=== PATIENT | female | born 1990 | race African-American/Black ===

== ENCOUNTER → 2016-07-19 | Emergency (ER) | payer OTHER ==
[~2016-07-19] MED LIST: LEVOFLOXACIN 500 MG TABLET (FP) ONE; LEVOFLOXACIN 500 MG TABLET (FP) PO ONE
[2016-07-19 21:59] VITALS: BMI 44.9
--- NOTE | 2016-07-19 22:53 | PDOC ---
History of Present Illness <Thea Bob - Last Filed: 07/19/16 22:53> - General History Source: Patient Exam Limitations: No Limitations - History of Present Illness Initial Comments: 07/19/16 22:55 The patient is a 26 year old female with significant past medical history of diabetes who presents to the ED for 1 week of progressively worsening frequency and urgency. Patient reports her frequency and urgency worsen 3 days ago. Today she developed left groin pain and low back pain. Denies dysuria and hematuria. States her last UTI was around the age of 13. Her LMP was few days ago. The patient denies fever, chills, cough, SOB, chest pain, and palpitations. The patient denies nausea, vomiting, and diarrhea. Allergies: NKDA Social History: No alcohol, tobacco, or drug use reported. Past Surgical History: C-sections x3, ovarian cyst removal, tubal ligation PCP: None reported <Fidelia Webber - Last Filed: 07/19/16 22:55> <Reshma De Jesus - Last Filed: 07/20/16 01:21> - General Chief Complaint: Urinary Problem Stated Complaint: PELVIC PAIN Time Seen by Provider: 07/19/16 22:19 Past History - Past Medical History Diabetes: Yes - Psycho/Social/Smoking Cessation Hx Anxiety: No Suicidal Ideation: No Smoking History: Never smoked Have you smoked in the past 12 months: No Information on smoking cessation initiated: No Hx Alcohol Use: No Drug/Substance Use Hx: No Substance Use Type: None <Thea Bob - Last Filed: 07/19/16 22:53> <Fidelia Webber - Last Filed: 07/19/16 22:55> <Reshma De Jesus - Last Filed: 07/20/16 01:21> - Past Medical History Allergies/Adverse Reactions: Allergies Allergy/AdvReac Type Severity Reaction Status Date / Time No Known Allergies Allergy Verified 04/08/16 22:39 Home Medications: Ambulatory Orders Metformin HCl [Glucophage -] 850 mg PO BID 04/08/16 Levofloxacin [Levaquin -] 500 mg PO DAILY #4 tablet 07/20/16 Review of Systems - Review of Systems Able to Perform ROS?: Yes Comments:: 07/19/16 22:55 GENERAL/CONSTITUTIONAL: No fever or chills. No weakness. HEAD, EYES, EARS, NOSE AND THROAT: No change in vision. No ear pain or discharge. No sore throat. CARDIOVASCULAR: No chest pain or shortness of breath. RESPIRATORY: No cough, wheezing, or hemoptysis. GASTROINTESTINAL: +left groin pain No nausea, vomiting, diarrhea or constipation. GENITOURINARY: +frequency, urgency No dysuria MUSCULOSKELETAL: +low back pain No joint or muscle swelling or pain. No neck pain. SKIN: No rash NEUROLOGIC: No headache, vertigo, loss of consciousness, or change in strength/ sensation. ENDOCRINE: No increased thirst. No abnormal weight change. HEMATOLOGIC/LYMPHATIC: No anemia, easy bleeding, or history of blood clots. ALLERGIC/IMMUNOLOGIC: No hives or skin allergy. <Fidelia Webber - Last Filed: 07/19/16 22:55> *Physical Exam - Vital Signs Last Vital Signs Temp Pulse Resp BP Pulse Ox 97.9 F 70 18 143/80 99 07/19/16 21:54 07/19/16 21:54 07/19/16 21:54 07/19/16 21:54 07/19/16 21:54 <Thea Bob - Last Filed: 07/19/16 22:53> - Vital Signs Last Vital Signs Temp Pulse Resp BP Pulse Ox 97.9 F 70 18 143/80 99 07/19/16 21:54 07/19/16 21:54 07/19/16 21:54 07/19/16 21:54 07/19/16 21:54 - Physical Exam Comments: 07/19/16 22:55 GENERAL: Awake, alert, and fully oriented, in no acute distress HEAD: No signs of trauma EYES: PERRLA, EOMI, sclera anicteric, conjunctiva clear ENT: Auricles normal inspection, hearing grossly normal, nares patent, oropharynx clear without exudates. Moist mucosa NECK: Normal ROM, supple, no lymphadenopathy, JVD, or masses LUNGS: Breath sounds equal, clear to auscultation bilaterally. No wheezes, and no crackles HEART: Regular rate and rhythm, normal S1 and S2, no murmurs, rubs or gallops ABDOMEN: Soft, mild left lower quadrant tenderness and suprapubic tenderness, normoactive bowel sounds. No guarding, no rebound. No masses EXTREMITIES: Normal range of motion, no edema. No clubbing or cyanosis. No cords, erythema, or tenderness NEUROLOGICAL: Cranial nerves II through XII grossly intact. Normal speech, normal gait SKIN: Warm, Dry, normal turgor, no rashes or lesions noted. <Fidelia Webber - Last Filed: 07/19/16 22:55> - Vital Signs Last Vital Signs Temp Pulse Resp BP Pulse Ox 97.9 F 70 18 143/80 99 07/19/16 21:54 07/19/16 21:54 07/19/16 21:54 07/19/16 21:54 07/19/16 21:54 <Reshma De Jesus - Last Filed: 07/20/16 01:21> ED Treatment Course - ADDITIONAL ORDERS Additional order review: Laboratory Results 07/19/16 22:39 Urine Color Straw Urine Appearance Clear Urine pH 5.0 Urine Protein Negative Urine Glucose (UA) 3+ H Urine Ketones Negative Urine Blood 1+ H Urine Nitrite Negative Urine Bilirubin Negative Urine Urobilinogen Negative Ur Leukocyte Esterase Trace H Urine RBC 1 Urine WBC 20 Ur Epithelial Cells Rare Urine Mucus Rare Urine HCG, Qual Negative <Reshma De Jesus - Last Filed: 07/20/16 01:21> Medical Decision Making - Medical Decision Making 07/20/16 01:19 Pt has minimal suprapubic tenderness. I will treat UTI with levaquin. She has 20 WBC and leuk + urine. She has an elevated blood sugar, but pt will take her levemir at home. Stable for discharge. Follow with PMD. <Reshma De Jesus - Last Filed: 07/20/16 01:21> *DC/Admit/Observation/Transfer <Thea Bob - Last Filed: 07/19/16 22:53> - Attestations Scribe Attestion: 07/19/16 22:55 Documentation prepared by Fidelia Webber, acting as medical reception for Thea Bob MD, /DO. <Fidelia Webber - Last Filed: 07/19/16 22:55> - Discharge Dispostion Admit: No <Reshma De Jesus - Last Filed: 07/20/16 01:21> Diagnosis at time of Disposition: UTI (urinary tract infection) - Discharge Dispostion Disposition: HOME Condition at time of disposition: Stable - Prescriptions Prescriptions: Levofloxacin [Levaquin -] 500 mg PO DAILY #4 tablet - Patient Instructions Printed Discharge Instructions: Urinary Tract Infection
[2016-07-19 22:56] LABS: URINE APPEARANCE CLEAR; URINE BILIRUBIN NEGATIVE (NEGATIVE); URINE COLOR STRAW; URINE GLUCOSE (UA) 3+ (NEGATIVE); URINE KETONE NEGATIVE (NEGATIVE); URINE NITRITE NEGATIVE (NEGATIVE); URINE PROTEIN NEGATIVE (NEGATIVE); URINE UROBILINOGEN NEGATIVE E.U./dl (0.2-1.0)
[2016-07-19 22:57] LABS: URINE BLOOD 1+ (NEGATIVE); URINE LEUK ESTERASE TRACE (NEGATIVE)
[2016-07-19 23:00] LABS: URINE MUCUS RARE; URINE RBC 1 /hpf (0-3); URINE WBC 20 /hpf (3-5)
[2016-07-20 00:25] VITALS: BP 131/77; PULSE 65; TEMP 98.3
--- NOTE | 2016-07-23 08:30 | PDOC ---
Patient Follow-up (Call Back) - Post ED Follow - Up Condition at time of discharge: Stable Disposition at time of original discharge: HOME - Disposition Additional Instructions/Notes: + urine culture, on levaquin, susceptible.
== END | disposition home or self-care (01) ==
LOC: JER 21:30
DX: N39.0 Urinary tract infection, site not specified (principal); E11.65 Type 2 diabetes mellitus with hyperglycemia; Z79.84 Long term (current) use of oral hypoglycemic drugs
CPT/HCPCS: 81003; 81015; 84703; 87086; 87186; 99282-25

== ENCOUNTER 2016-10-03 13:34 | Emergency (ER) | payer OTHER ==
[2016-10-03 13:42] VITALS: BP 146/89; PULSE 76; TEMP 98.4; BMI 35.5
--- NOTE | 2016-10-03 15:12 | PDOC ---
Attending Attestation - Resident Resident Name: Keira Madrigal - ED Attending Attestation I have performed the following: I have examined & evaluated the patient, The case was reviewed & discussed with the resident, I agree w/resident's findings & plan, Exceptions are as noted - HPI HPI: 10/03/16 15:10 26yo F hx NIDDM, bacterial vaginosis, s/p treatment last wk (finished saturday) , b/l tubal ligation p/w RLQ pain x2 days. Pain radiates to R flank and down R thigh. Pain is worse with heavy lifting. Feels like a previous ovarian cyst. LMP 09/16/16. Also reports urinary frequency and urgency. +nausea 10/03/16 15:17 - Physicial Exam PE: 10/03/16 15:18 GENERAL: Awake, alert, and fully oriented, in no acute distress HEAD: No signs of trauma EYES: PERRLA, EOMI, sclera anicteric, conjunctiva clear ENT: Auricles normal inspection, hearing grossly normal, nares patent, oropharynx clear without exudates. Moist mucosa NECK: Normal ROM, supple, no lymphadenopathy, JVD, or masses LUNGS: Breath sounds equal, clear to auscultation bilaterally. No wheezes, and no crackles HEART: Regular rate and rhythm, normal S1 and S2, no murmurs, rubs or gallops ABDOMEN: Soft, normoactive bowel sounds. No guarding, no rebound. No masses. R sided abdominal pain RLQ>RUQ. EXTREMITIES: Normal range of motion, no edema. No clubbing or cyanosis. No cords, erythema, or tenderness NEUROLOGICAL: Normal speech, cranial nerves intact, negative pronator drift, 5/ 5 strength in all 4 extremities, normal sensation to light touch in all 4 extremities, normal cerebellar exam, normal gait, normal reflexes and tone SKIN: Warm, Dry, normal turgor, no rashes or lesions noted. - Medical Decision Making 10/03/16 15:19 26-year-old female presents with right lower quadrant pain and tenderness. Differential is wide and includes ectopic although unlikely given history of tubal ligation versus ruptured ovarian cyst versus PID versus appendicitis versus UTI. -labs -UA -TVUS -consider CTAP -pain control -reassess 10/04/16 20:05
--- NOTE | 2016-10-03 15:18 | PDOC ---
History of Present Illness - General Chief Complaint: Pain Stated Complaint: LOWER PELVIC PAIN Time Seen by Provider: 10/03/16 14:42 History Source: Patient Exam Limitations: No Limitations - History of Present Illness Initial Comments: This is a 26 female with h/o recent bacterial vaginosis (finished metronidazole course on 4 days ago), recent vaginal yeast infection (took antifungal pill on two days ago), NIDDM, ovarian cystectomy, bilateral tubal ligation, and C- section x3 who p/w RLQ and right flank pain for the past two days. It has fluctuated up to 8/10 and feels like cramping pressure, with occasional sharper shooting pain in the RLQ that radiates to her groin and down the front of her right thigh. It improves with resting on her left side, and worsens with heavy lifting. 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 She took Tylenol yesterday for the pain. She notes similar prior episodes of pain in the same area just before she had a right ovarian cyst removed. She additionally notes white vaginal discharge, recent urinary frequency, pink coloration yesterday, and urgency resulting in leaking urine. She has had nausea and urge to defecate today as well, but denies any fever, chills, vomiting, diarrhea, constipation, painful urination, new numbness, new tingling, headache, new dizziness, black or bloody stool, or other symptoms. Past History - Past Medical History Allergies/Adverse Reactions: Allergies Allergy/AdvReac Type Severity Reaction Status Date / Time No Known Allergies Allergy Verified 10/03/16 13:39 Home Medications: Ambulatory Orders Metformin HCl [Glucophage -] 500 mg PO DAILY 04/08/16 Diabetes: Yes Other medical history: recent bacterial vaginosis - Surgical History Appendectomy: No Cholecystectomy: No Other Surgical History: right ovarian cyst removal, bilateral tubal ligation - Reproductive History LMP comment: LMP 09/16/16 - Psycho/Social/Smoking Cessation Hx Anxiety: No Suicidal Ideation: No Smoking History: Never smoked Have you smoked in the past 12 months: No Information on smoking cessation initiated: No Hx Alcohol Use: No Drug/Substance Use Hx: No Substance Use Type: None Review of Systems - Review of Systems Able to Perform ROS?: Yes Constitutional: No: Chills, Fever, Unexplained wgt Loss HEENTM: No: Nose Congestion, Throat Pain Respiratory: No: Cough, Shortness of Breath Cardiac (ROS): No: Chest Pain, Lightheadedness, Palpitations ABD/GI: Yes: Nausea, Other (abdominal pain). No: Constipated, Diarrhea, Vomiting : Yes: Discharge (white), Frequency, Flank Pain (right), Hematuria, Pain ( vaginal), Urgency. No: Burning, Dysuria Musculoskeletal: No: Muscle Weakness, Neck Pain Integumentary: No: Bruising, Rash Neurological: No: Headache, Numbness, Tingling, Weakness, Dizziness Endocrine: No: Unexplained Weight Gain, Unexplained Weight Loss *Physical Exam - Vital Signs Last Vital Signs Temp Pulse Resp BP Pulse Ox 98.4 F 76 18 146/89 100 10/03/16 13:40 10/03/16 13:40 10/03/16 13:40 10/03/16 13:40 10/03/16 13:40 - Physical Exam General Appearance: Yes: Nourished, Appropriately Dressed, Obese, Other ( pleasant young woman with two young children in the room with her, nontoxic appearing, conversive and calm). No: Apparent Distress HEENT: positive: EOMI, Normal Voice, Hearing Grossly Normal. negative: Scleral Icterus (R), Scleral Icterus (L), Nasal Congestion Neck: positive: Trachea midline, Supple. negative: Tender, Rigid Respiratory/Chest: positive: Lungs Clear, Normal Breath Sounds. negative: Respiratory Distress, Crackles, Rhonchi, Stridor, Wheezing Cardiovascular: positive: Regular Rhythm, Regular Rate. negative: Edema, Murmur Female Pelvic Exam: positive: cervical os closed, CMT, discharge (copious thick white discharge with curdled appearance and slight pink tinge), adnexal tenderness (right), other (external exam with raw and mildly irritated skin to bilateral labia majora) Gastrointestinal/Abdominal: positive: Normal Bowel Sounds, Tender (mild diffuse tenderness with moderate tenderness to RLQ with tenderness at McBurney's point and positive Thompson's sign, no rebound tenderness), Soft. negative: Organomegaly, Pulsatile Mass, Guarding Musculoskeletal: positive: Normal Inspection, CVA Tenderness (R). negative: CVA Tenderness (L), Decreased Range of Motion, Vertebral Tenderness Extremity: positive: Normal Capillary Refill, Normal Inspection, Normal Range of Motion. negative: Tender, Cyanosis Integumentary: positive: Normal Color, Dry, Warm. negative: Erythema, Rash, Bruising Neurologic: positive: furnace filler II-XII NML intact, Fully Oriented, Alert, Normal Mood/ Affect, Normal Response, Motor Strength 5/5, Finger to Nose (normal) ED Treatment Course - LABORATORY CBC & Chemistry Diagram: 10/03/16 15:43 10/03/16 15:43 Medical Decision Making - Medical Decision Making 26 yo female with NIDDM, recent BV, recent vaginal yeast infection p/w RLQ and pelvic pain. Exam notable for diffuse ttp worse in the RLQ, right CVA tenderness. Pelvic exam with copious discharge, CMT, and right adnexal tenderness. DDX includes ovarian cyst, vaginitis, PID, UTI/pyelo, appendicitis, cholecystitis, pancreatitis, sciatica, or muscle strain/sprain. Ordered are CBCD, CMP, lipase, UA +cx, US transvaginal, GC/Chlam/Trich and RPR, CT Ab/Pelv WWO contrast. Laboratory Tests 10/03/16 10/03/16 10/03/16 15:43 15:43 15:43 WBC 8.1 RBC 4.73 Hgb 13.0 Hct 39.8 MCV 84.0 MCH 27.5 MCHC 32.8 RDW 13.5 Plt Count 142 MPV 13.0 H Neutrophils % 55.7 Lymphocytes % 32.9 D Monocytes % 8.8 Eosinophils % 1.9 Basophils % 0.7 Differential Comment Slide scanned Platelet Estimate Adequate Sodium 136 Potassium 4.2 Chloride 99 Carbon Dioxide 26 Anion Gap 11 BUN 9 D Creatinine 0.8 Creat Clearance w eGFR > 60 Random Glucose 348 H* Calcium 9.1 Total Bilirubin 0.2 D AST 13 L ALT 34 Alkaline Phosphatase 67 Total Protein 6.7 Albumin 3.4 Lipase 153 Serum , Qual Urine Color Straw Urine Appearance Clear Urine pH 5.0 Ur Specific [place] <= 1.005 Urine Protein Negative Urine Glucose (UA) 3+ H Urine Ketones Trace H Urine Blood Negative Urine Nitrite Negative Urine Bilirubin Negative Urine Urobilinogen Negative Ur Leukocyte Esterase Negative 10/03/16 17:46 WBC RBC Hgb Hct MCV MCH MCHC RDW Plt Count MPV Neutrophils % Lymphocytes % Monocytes % Eosinophils % Basophils % Differential Comment Platelet Estimate Sodium Potassium Chloride Carbon Dioxide Anion Gap BUN Creatinine Creat Clearance w eGFR Random Glucose Calcium Total Bilirubin AST ALT Alkaline Phosphatase Total Protein Albumin Lipase Serum , Qual Negative Urine Color Urine Appearance Urine pH Ur Specific [place] Urine Protein Urine Glucose (UA) Urine Ketones Urine Blood Urine Nitrite Urine Bilirubin Urine Urobilinogen Ur Leukocyte Esterase UA without e/o UTI. Serum negative. CBCD unremarkable, CMP shows hyperglycemia but the patient is asymptomatic. Lipase is negative. Transvaginal US reported as normal, ovaries not visualized. Pt awaiting CT abdomen/pelvis WWO contrast (IV and PO). Signed out to oncoming resident, Dr. Ned Evans. *DC/Admit/Observation/Transfer Diagnosis at time of Disposition: Pain in pelvis - Attestations Physician Attestion: I, Dr. Keira Madrigal, attest that this document has been prepared under my direction and personally reviewed by me in its entirety. I further attest, that it accurately reflects all work, treatment, procedures and medical decision -making performed by me.
[2016-10-03 16:02] LABS: BASOPHIL 0.7 % (0-2.0); EOSINOPHIL 1.9 % (0-4.5); MCH 27.5 pg (25.7-33.7); MCHC 32.8 g/dl (32.0-36.0); NEUTROPHILS 55.7 % (42.8-82.8); PLATELET COUNT 142 K/MM3 (134-434); RDW 13.5 % (11.6-15.6); WHITE BLOOD COUNT 8.1 K/mm3 (4.0-10.0)
[2016-10-03 16:08] LABS: URINE APPEARANCE CLEAR; URINE BILIRUBIN NEGATIVE (NEGATIVE); URINE BLOOD NEGATIVE (NEGATIVE); URINE COLOR STRAW; URINE GLUCOSE (UA) 3+ (NEGATIVE); URINE KETONE TRACE (NEGATIVE); URINE LEUK ESTERASE NEGATIVE (NEGATIVE); URINE NITRITE NEGATIVE (NEGATIVE); URINE PROTEIN NEGATIVE (NEGATIVE); URINE UROBILINOGEN NEGATIVE mg/dL (0.2-1.0)
[2016-10-03 16:34] LABS: ALBUMIN 3.4 g/dl (3.4-5.0); ALK PHOS 67 U/L (45-117); ANION GAP 11 (8-16); BILIRUBIN,TOTAL 0.2 mg/dL (0.2-1.0); CALCIUM 9.1 mg/dL (8.5-10.1); CO2 26 mmol/L (21-32); CREATININE 0.8 mg/dL (0.55-1.02); SGOT/AST 13 U/L (15-37); SGPT/ALT 34 U/L (12-78); TOT PROT 6.7 g/dl (6.4-8.2)
[2016-10-03 16:42] LABS: GLUCOSE,RANDOM 348 mg/dL (74-106)
[2016-10-03 19:14] LABS: PLATELET ESTIMATE ADEQUATE (NORMAL)
[2016-10-03] MEDS ORDERED: cefTRIAXone SODIUM 1 GM VIAL ONE (20:26)
[2016-10-03] MEDS ORDERED: LIDOCAINE HCL/PF 1% SDV 5ML VIAL ONE (20:27)
[2016-10-03] MEDS ORDERED: DOXYCYCLINE HYCLATE 100 MG CAPSULE PO ONE ×2 (22:00→22:04)
[2016-10-03] MEDS ORDERED: INSULIN REGULAR HUMAN 100 UNITS/ML *VIAL SQ ONE (22:11)
--- NOTE | 2016-10-03 22:12 | PDOC ---
*Physical Exam - Vital Signs Last Vital Signs Temp Pulse Resp BP Pulse Ox 98.4 F 76 18 146/89 100 10/03/16 13:40 10/03/16 13:40 10/03/16 13:40 10/03/16 13:40 10/03/16 13:40 - Physical Exam Comments: 10/03/16 22:12 pt endorsed to me by Dr. Solitario/Ira. Patient is a 26-year-old female with history of diabetes (noncompliant with her insolent regimen) who presents to the ER with atraumatic lower abdominal pain. In the ER, patient is awake and alert, nontoxic-appearing, afebrile. CBC is within normal limit. CMP reveals hyperglycemia of 359 with no evidence of increased anion gap. Significant only decreased sodium bicarbonate. Transvaginal ultrasound revealed no adnexal masses , ovaries were not adequately visualized. CT of abdomen and pelvis with by mouth and IV contrast revealed no evidence of acute appendicitis or any other intra-abdominal pathology. Pelvic exam performed by Dr. Koroma reveal large amount of purulent vaginal discharge as well as CMT and right adnexal tenderness. PID suspected. We will treat with ceftriaxone and doxycycline. Will obtain RPR to be followed up by [facility]. Will discharge. ED Treatment Course - LABORATORY CBC & Chemistry Diagram: 10/03/16 15:43 10/03/16 15:43 - ADDITIONAL ORDERS Additional order review: Laboratory Results 10/03/16 10/03/16 10/03/16 17:46 15:43 15:43 Sodium 136 Potassium 4.2 Chloride 99 Carbon Dioxide 26 Anion Gap 11 BUN 9 D Creatinine 0.8 Creat Clearance w eGFR > 60 Random Glucose 348 H* Calcium 9.1 Total Bilirubin 0.2 D AST 13 L ALT 34 Alkaline Phosphatase 67 Total Protein 6.7 Albumin 3.4 Lipase 153 Serum , Qual Negative Urine Color Straw Urine Appearance Clear Urine pH 5.0 Ur Specific [place] <= 1.005 Urine Protein Negative Urine Glucose (UA) 3+ H Urine Ketones Trace H Urine Blood Negative Urine Nitrite Negative Urine Bilirubin Negative Urine Urobilinogen Negative Ur Leukocyte Esterase Negative 10/03/16 15:43 RBC 4.73 MCV 84.0 MCHC 32.8 RDW 13.5 MPV 13.0 H Neutrophils % 55.7 Lymphocytes % 32.9 D Monocytes % 8.8 Eosinophils % 1.9 Basophils % 0.7 *DC/Admit/Observation/Transfer Diagnosis at time of Disposition: Acute pelvic inflammatory disease, Hyperglycemia without ketosis Abdominal pain Qualifiers: Abdominal location: right lower quadrant Qualified Code(s): R10.31 - Right lower quadrant pain - Discharge Dispostion Disposition: HOME Condition at time of disposition: Stable - Referrals Referrals: Christiano Coley [Primary Care Provider] - Twan Jeffery MD [Staff Physician] - - Patient Instructions Printed Discharge Instructions: DI for Pelvic Inflammatory Disease, DI for Abdominal Pain-Adult, DI for Hyperglycemia -- Adult - Post Discharge Activity
[2016-10-03] MEDS ORDERED: INSULIN (NOVOLOG) ASPART 100 UNITS/ML 10ML VIAL ONE (22:44)
== END 2016-10-03 22:56 | disposition home or self-care (01) ==
LOC: JER 13:34
PROC: 3E013VG Introduction of Insulin into Subcutaneous Tissue, Percutaneous Approach (ICD-10-PCS; principal; 2016-10-03)
PROC: 3E03329 Introduction of Other Anti-infective into Peripheral Vein, Percutaneous Approach (ICD-10-PCS; 2016-10-03)
DX: R10.2 Pelvic and perineal pain (principal); E11.9 Type 2 diabetes mellitus without complications
CPT/HCPCS: 36415; 74177-TC; 76830-TC; 80053; 81003; 83690; 84703; 85025; 86593; 87086; 87186; 87491; 87591; 99283-25

== ENCOUNTER 2018-09-30 23:08 | Emergency (ER) | payer OTHER | END 2018-10-01 03:31 | disposition home or self-care (01) | LOC: JER 23:08 | DX: N76.0 Acute vaginitis (principal); N39.0 Urinary tract infection, site not specified; E11.9 Type 2 diabetes mellitus without complications; Z79.84 Long term (current) use of oral hypoglycemic drugs ==

== ENCOUNTER 2021-03-28 18:31 | Emergency (ER) | payer OTHER ==
[2021-03-28 18:39] VITALS: TEMP 97.7; BMI 44.4
[2021-03-28 20:33] LABS: BASO % 0.6 % (0-2.0); EOS % 2.5 % (0-4.5); HEMOGLOBIN 12.5 GM/dL (10.7-15.3); LYMPH % 44.1 % (8-40); MCH 26.3 pg (25.7-33.7); MCHC 31.3 g/dl (32.0-36.0); NEUT % 44.8 % (42.8-82.8); PLATELET COUNT 194 10^3/uL (134-434); RBC 4.76 M/mm3 (3.60-5.2); RDW 13.2 % (11.6-15.6); WHITE BLOOD COUNT 5.9 K/mm3 (4.0-10.0)
[2021-03-28 20:41] LABS: INR 0.95 (0.83-1.09); PROTHROMBIN TIME (PATIENT) 10.9 SEC (9.7-13.0)
[2021-03-28 21:11] LABS: CHLORIDE 102 mmol/L (98-107); SODIUM 138 mmol/L (136-145)
[2021-03-28 21:16] LABS: ALBUMIN 3.4 g/dl (3.4-5.0); BLOOD UREA NITROGEN 12.4 mg/dL (7-18); CALCIUM 9.3 mg/dL (8.5-10.1)
[2021-03-28 21:17] LABS: GLUCOSE,RANDOM 292 mg/dL (74-106)
[2021-03-28 21:19] LABS: ANION GAP 9 MMOL/L (8-16); CO2 27 mmol/L (21-32); CREATININE 0.8 mg/dL (0.55-1.3); SGPT/ALT 33 U/L (13-61)
[2021-03-28 21:20] LABS: SGOT/AST 28 U/L (15-37)
[2021-03-28 21:21] LABS: BILIRUBIN,TOTAL 0.3 mg/dL (0.2-1)
[2021-03-28 21:22] LABS: ALK PHOS 89 U/L (45-117)
[2021-03-28] MEDS ORDERED: SODIUM CHLORIDE 0.9% 500 ML INFUS.BAG IV ONE (21:26)
[2021-03-28] MEDS ORDERED: INSULIN REGULAR HUMAN 100 UNITS/ML *VIAL SQ ONE (21:26)
[2021-03-28] MEDS ORDERED: INSULIN (NOVOLOG) ASPART 100 UNITS/ML 10ML VIAL SQ ONE (22:17)
[2021-03-28 22:45] LABS: N-TERMINAL BNP 10.3 pg/ml (5-125)
[2021-03-29 00:19] VITALS: BP 132/78; PULSE 86
== END 2021-03-29 00:19 | disposition home or self-care (01) ==
LOC: JER 18:31
DX: R00.2 Palpitations (principal)
CPT/HCPCS: 36415; 71046-TC-FY; 80053; 82962; 83880; 84439; 84443; 84484; 85025; 85610; 93005; 93010; 99285-25

== ENCOUNTER 2022-01-11 21:00 | Emergency (ER) | payer OTHER ==
[2022-01-11 21:12] VITALS: BP 152/91; PULSE 78; RESP 18; TEMP 98; BMI 41.5
[2022-01-12] MEDS ORDERED: ACETAMINOPHEN 325 MG TABLET (FP) PO ONE (01:02)
[2022-01-12] MEDS ORDERED: ACETAMINOPHEN 325 MG TABLET (FP) ONE (01:12)
== END 2022-01-12 01:32 | disposition home or self-care (01) ==
LOC: FER 21:00
DX: U07.1 COVID-19 (principal)
CPT/HCPCS: 0241U-QW; 99283-25